=== PATIENT | female | born 1950 | race Hispanic/Latino ===

== ENCOUNTER 2018-01-05 22:10 | Inpatient (IN) | payer MEDICARE ==
[~2018-01-05] VITALS: Ht 149.9 cm; Wt 47.0 kg
[~2018-01-05 22:10] MED LIST: ASPI81TA40 PO; ATOR40TA71 PO; GLIM2TAB3 PO; LISI10TA7 PO; METF750T PO
[2018-01-05 22:40] LABS: BASOPHILS % (AUTO) 0.6 % (0.0-5.0); EOSINOPHILS % (AUTO) 3.8 % (0.0-8.0); HEMATOCRIT 36.3 % (36-48); LYMPHOCYTES % (AUTO) 44.7 % (21.0-51.0); MEAN CORPUSCULAR HEMOGLOBIN 27.7 pg (27.0-33.0); MEAN CORPUSCULAR HGB CONC 33.3 g/dL (32.0-36.0); MEAN CORPUSCULAR VOLUME 83.1 fL (79-99); MONOCYTES % (AUTO) 7.8 % (3.0-13.0); NEUTROPHILS % (AUTO) 43.1 % (40.0-77.0); PLATELET COUNT (AUTO) 306 K/uL (130-400); RED BLOOD CELL COUNT(AUTO) 4.37 MIL/uL (4.00-5.50); RED CELL DISTRIBUTION WIDTH 13.3 % (11.0-15.5); WHITE BLOOD COUNT (AUTO) 6.7 K/uL (4.8-10.8)
[2018-01-05 22:49] LABS: APPEARANCE,URINE Clear (CLEAR); BILIRUBIN,URINE Negative (NEGATIVE); COLOR,URINE Yellow (YELLOW); GLUCOSE, URINE (UA) >=1000 mg/dL (NEGATIVE); KETONES,URINE Negative (NEGATIVE); LEUKOCYTE ESTERASE ,URINE Trace (NEGATIVE); NITRATE,URINE Negative (NEGATIVE); OCCULT BLOOD,URINE Trace (NEGATIVE); PROTEIN,URINE Negative (NEGATIVE); UROBILINOGEN,URINE 0.2 mg/dL (0.2-1.0)
[2018-01-05 22:58] LABS: CREATININE 0.8 mg/dL (0.5-1.5); POTASSIUM 3.9 mmol/L (3.5-5.1)
[2018-01-05 23:00] LABS: AMORPHOUS SEDIMENT,UR Moderate /LPF (None Seen); BACTERIA,URINE Rare /HPF (None Seen); INR 0.95 (0.85-1.15); MUCUS,URINE Few LPF (None Seen); PARTIAL THROMBOPLASTIN TIME 25.4 SEC (26.3-35.5); SQUAMOUS EPITHELIAL CELL,UR Few /HPF (0-2)
[2018-01-05] MEDS ORDERED: SODIUM CHLORIDE 0.9% 1000ML 1,000 ML IV ONE (23:02)
[2018-01-05 23:12] LABS: ALBUMIN 3.4 g/dL (3.5-5.0); BILIRUBIN,TOTAL 0.4 mg/dL (0.2-1.0); CREATINE KINASE MB 0.5 ng/mL (0.5-3.6); TOTAL PROTEIN, SERUM 7.7 g/dL (6.0-8.3)
[2018-01-05] MEDS ORDERED: NITROGLYCERIN 1GM/1 INCH PACKET TD ONE (23:50)
[2018-01-05] MEDS ORDERED: ASPIRIN 325 MG TABLET ONE (23:50)
[2018-01-06] MEDS ORDERED: METOPROLOL TARTRATE 25 MG TAB ONE (01:59)
[2018-01-06] MEDS ORDERED: ENOXAPARIN SODIUM 30 MG/0.3 ML SQ ONE (01:59)
[2018-01-06] MEDS ORDERED: DEXTROSE 5 % AND 0.9 % NACL 1,000 ML IV ONE (02:00)
[2018-01-06 05:43] LABS: BASOPHILS % (AUTO) 0.8 % (0.0-5.0); HEMATOCRIT 31.3 % (36-48); LYMPHOCYTES % (AUTO) 45.1 % (21.0-51.0); MEAN CORPUSCULAR HEMOGLOBIN 28.9 pg (27.0-33.0); MEAN CORPUSCULAR VOLUME 82.5 fL (79-99); MONOCYTES % (AUTO) 6.4 % (3.0-13.0); NEUTROPHILS % (AUTO) 43.7 % (40.0-77.0); NUCLEATED RED BLOOD CELLS 0.1 % (0.0-0.19); PLATELET COUNT (AUTO) 250 K/uL (130-400); RED CELL DISTRIBUTION WIDTH 13.1 % (11.0-15.5); WHITE BLOOD COUNT (AUTO) 6.7 K/uL (4.8-10.8)
[2018-01-06 05:56] LABS: CREATININE 0.6 mg/dL (0.5-1.5); POTASSIUM 3.6 mmol/L (3.5-5.1)
[2018-01-06 06:00] LABS: INR 0.96 (0.85-1.15); PARTIAL THROMBOPLASTIN TIME 30.5 SEC (26.3-35.5); PROTHROMBIN TIME 10.1 SEC (9.6-11.6)
[2018-01-06 06:03] LABS: ALBUMIN 2.8 g/dL (3.5-5.0); BILIRUBIN,TOTAL 0.5 mg/dL (0.2-1.0); MAGNESIUM 1.5 mg/dL (1.80-2.40); TOTAL PROTEIN, SERUM 6.6 g/dL (6.0-8.3)
[2018-01-06] MEDS ORDERED: MAGNESIUM 2GM PREMIX 50ML 50 ML IV ONE ×2 (14:39→16:50)
[2018-01-06 16:00] VITALS: BP 148/78
[2018-01-06] MEDS: PANTOPRAZOLE 40 MG/VIAL IVP SCH (16:00)
[2018-01-06 19:54] VITALS: BP 144/74
[2018-01-07 03:48] VITALS: BP 127/74
[2018-01-07 04:32] LABS: HEMATOCRIT 36.6 % (36-48); MEAN CORPUSCULAR HEMOGLOBIN 27.8 pg (27.0-33.0); MEAN CORPUSCULAR HGB CONC 33.9 g/dL (32.0-36.0); MEAN CORPUSCULAR VOLUME 82.1 fL (79-99); PLATELET COUNT (AUTO) 297 K/uL (130-400); RED BLOOD CELL COUNT(AUTO) 4.46 MIL/uL (4.00-5.50); RED CELL DISTRIBUTION WIDTH 13.2 % (11.0-15.5); WHITE BLOOD COUNT (AUTO) 6.4 K/uL (4.8-10.8)
[2018-01-07 05:10] LABS: ALBUMIN 3.2 g/dL (3.5-5.0); BILIRUBIN,TOTAL 0.7 mg/dL (0.2-1.0); CREATININE 0.7 mg/dL (0.5-1.5); MAGNESIUM 2.3 mg/dL (1.80-2.40); POTASSIUM 3.7 mmol/L (3.5-5.1); TOTAL PROTEIN, SERUM 7.3 g/dL (6.0-8.3)
[2018-01-07] MEDS ORDERED: INSULIN HUMULIN R 100 UNIT/ML 3ML ONE (06:25)
[2018-01-07] MEDS: INSULIN HUMULIN R 100 UNIT/ML 3ML SQ SCH ×2 (06:29→11:30)
[2018-01-07] MEDS ORDERED: GLUCAGON 1MG KIT 1 MG ML IM PRN (06:30)
[2018-01-07] MEDS ORDERED: DEXTROSE 50%-WATER 50 ML DISP.SYRIN IV PRN (06:30)
[2018-01-07 08:00] VITALS: BP 125/77
[2018-01-07] MEDS: PANTOPRAZOLE 40 MG/VIAL IVP SCH (08:11)
[2018-01-07] MEDS ORDERED: LINA1TAB3 PO (08:26)
[2018-01-07] MEDS ORDERED: LEVO500T89 PO (08:26)
[2018-01-07 12:00] VITALS: BP 110/65
[2018-01-07 16:00] VITALS: BP 134/72
[2018-01-07 19:44] VITALS: BP 121/67
[2018-01-08] VITALS: BP 97/52
[2018-01-08 04:00] VITALS: BP 99/51
[2018-01-08] MEDS: INSULIN HUMULIN R 100 UNIT/ML 3ML SQ SCH ×4 (06:11→16:04)
[2018-01-08 07:00] VITALS: BP 100/63
[2018-01-08 11:00] VITALS: BP 104/60
[2018-01-08] MEDS: PANTOPRAZOLE 40 MG/VIAL IVP SCH (15:06)
[2018-01-08 16:00] VITALS: BP 112/67
== END 2018-01-08 17:20 | disposition home or self-care (01) | DRG 439 ==
LOC: EDH 22:10 → EDHIP 01-06 01:40 → 3DH 01-06 16:40
PROVIDERS: ADMIT Internal Medicine Infectious Disease; ATTEND Internal Medicine Infectious Disease
DX: K85.90 Acute pancreatitis without necrosis or infection, unspecified (principal); E44.0 Moderate protein-calorie malnutrition; E11.65 Type 2 diabetes mellitus with hyperglycemia; H40.9 Unspecified glaucoma; M19.90 Unspecified osteoarthritis, unspecified site; I10 Essential (primary) hypertension; I35.1 Nonrheumatic aortic (valve) insufficiency; Z83.3 Family history of diabetes mellitus; Z90.710 Acquired absence of both cervix and uterus
CPT/HCPCS: 36415; 71045; 74176; 80053; 80061; 81001; 82150; 82550; 82553; 82948; 83690; 83735; 84484; 85025; 85027; 85610; 85730; 93005; 93306; C9113; J1650; J1815; J3475; J7030; J7042; J7070

== ENCOUNTER → 2018-07-07 | Outpatient (CLI) | payer MEDICARE ==
[~2018-07-07] MED LIST changes: -GLIM2TAB3 PO; +LINA1TAB3 PO; -METF750T PO
== END | disposition home or self-care (01) ==
LOC: RAH 08:24
PROVIDERS: ATTEND Internal Medicine Gastroenterology
DX: K85.00 Idiopathic acute pancreatitis without necrosis or infection (principal); K80.20 Calculus of gallbladder without cholecystitis without obstruction
CPT/HCPCS: 76700

== ENCOUNTER 2018-10-23 11:01 | Emergency (ER) | payer MEDICARE ==
[2018-10-23 11:47] LABS: BASOPHILS % (AUTO) 0.8 % (0.0-5.0); EOSINOPHILS % (AUTO) 2.9 % (0.0-8.0); HEMATOCRIT 35.3 % (36-48); MEAN CORPUSCULAR HEMOGLOBIN 26.8 pg (27.0-33.0); MEAN CORPUSCULAR HGB CONC 31.8 g/dL (32.0-36.0); MEAN CORPUSCULAR VOLUME 84.3 fL (79-99); MONOCYTES % (AUTO) 5.7 % (3.0-13.0); NEUTROPHILS % (AUTO) 62.6 % (40.0-77.0); PLATELET COUNT (AUTO) 256 K/uL (130-400); RED BLOOD CELL COUNT(AUTO) 4.19 MIL/uL (4.00-5.50); RED CELL DISTRIBUTION WIDTH 14.9 % (11.0-15.5); WHITE BLOOD COUNT (AUTO) 5.8 K/uL (4.8-10.8)
[2018-10-23 11:58] LABS: ALBUMIN 3.3 g/dL (3.5-5.0); BILIRUBIN,TOTAL 0.4 mg/dL (0.2-1.0); CREATININE 0.8 mg/dL (0.5-1.5); POTASSIUM 4.2 mmol/L (3.5-5.1); TOTAL PROTEIN, SERUM 7.6 g/dL (6.0-8.3)
[2018-10-23 12:14] LABS: APPEARANCE,URINE Clear (CLEAR); BILIRUBIN,URINE Negative (NEGATIVE); COLOR,URINE Yellow (YELLOW); GLUCOSE, URINE (UA) >=1000 mg/dL (NEGATIVE); KETONES,URINE Negative (NEGATIVE); LEUKOCYTE ESTERASE ,URINE Negative (NEGATIVE); NITRATE,URINE Negative (NEGATIVE); OCCULT BLOOD,URINE Negative (NEGATIVE); PH,URINE 5.5 (5.0-8.0); PROTEIN,URINE Negative (NEGATIVE); UROBILINOGEN,URINE 0.2 mg/dL (0.2-1.0)
[2018-10-23 12:41] LABS: BACTERIA,URINE Few /HPF (None Seen); RBC,URINE None Seen /HPF (0-1); SQUAMOUS EPITHELIAL CELL,UR Few /HPF (0-2); WBC,URINE 0-1 /HPF (0-1)
[2018-10-23] MEDS ORDERED: ACETAMINOPHEN 325 MG TAB ONE (12:50)
[2018-10-23] MEDS ORDERED: INSULIN HUMULIN R 100 UNIT/ML 3ML ONE (12:56)
[2018-10-23] MEDS ORDERED: SODIUM CHLORIDE 0.9% 1000ML 1,000 ML IV ONE (13:00)
== END 2018-10-23 15:07 | disposition home or self-care (01) ==
LOC: EDH 11:01
DX: A08.4 Viral intestinal infection, unspecified (principal); I10 Essential (primary) hypertension; E11.9 Type 2 diabetes mellitus without complications; M19.90 Unspecified osteoarthritis, unspecified site; Z90.710 Acquired absence of both cervix and uterus; Z98.890 Other specified postprocedural states; Z79.4 Long term (current) use of insulin
CPT/HCPCS: 36415; 80053; 81001; 82150; 82948; 83690; 85025; 93005; 96360; 96361; 96372; 99284; J1815; J7030

== ENCOUNTER 2018-11-02 08:46 | Inpatient (IN) | payer MEDICARE ==
[~2018-11-02] VITALS: Ht 142.2 cm; Wt 52.2 kg
[2018-11-02 09:08] LABS: BASOPHILS % (AUTO) 0.6 % (0.0-5.0); EOSINOPHILS % (AUTO) 2.1 % (0.0-8.0); HEMATOCRIT 35.6 % (36-48); LYMPHOCYTES % (AUTO) 21.5 % (21.0-51.0); MEAN CORPUSCULAR HGB CONC 32.6 g/dL (32.0-36.0); MEAN CORPUSCULAR VOLUME 82.8 fL (79-99); MONOCYTES % (AUTO) 5.8 % (3.0-13.0); NUCLEATED RED BLOOD CELLS 0.1 % (0.0-0.19); PLATELET COUNT (AUTO) 304 K/uL (130-400); RED CELL DISTRIBUTION WIDTH 14.7 % (11.0-15.5)
[2018-11-02] MEDS ORDERED: SODIUM CHLORIDE 0.9% 1000ML 1,000 ML IV ONE ×2 (09:09→10:21)
[2018-11-02 09:18] LABS: CREATININE 0.7 mg/dL (0.5-1.5); POTASSIUM 3.5 mmol/L (3.5-5.1)
[2018-11-02 09:27] LABS: ALBUMIN 3.5 g/dL (3.5-5.0); BILIRUBIN,TOTAL 0.3 mg/dL (0.2-1.0); TOTAL PROTEIN, SERUM 7.1 g/dL (6.0-8.3)
[2018-11-02 10:01] LABS: APPEARANCE,URINE Cloudy (CLEAR); BILIRUBIN,URINE Negative (NEGATIVE); COLOR,URINE Yellow (YELLOW); GLUCOSE, URINE (UA) >=1000 mg/dL (NEGATIVE); KETONES,URINE Negative (NEGATIVE); LEUKOCYTE ESTERASE ,URINE Moderate (NEGATIVE); NITRATE,URINE Negative (NEGATIVE); OCCULT BLOOD,URINE Trace (NEGATIVE); PROTEIN,URINE Negative (NEGATIVE); UROBILINOGEN,URINE 0.2 mg/dL (0.2-1.0)
[2018-11-02 10:23] LABS: BACTERIA,URINE Many /HPF (None Seen); RBC,URINE 0-1 /HPF (0-1)
[2018-11-02] MEDS ORDERED: CEFTRIAXONE SODIUM 1 GM ONE (11:18)
[2018-11-02] MEDS ORDERED: ONDANSETRON HCL 4 MG/2 ML VIAL IVP PRN (12:00)
[2018-11-02] MEDS ORDERED: DEXTROSE 50%-WATER 50 ML DISP.SYRIN IV PRN (12:00)
[2018-11-02] MEDS ORDERED: GLUCAGON 1MG KIT 1 MG ML IM PRN (12:00)
[2018-11-02] MEDS ORDERED: DILTIAZEM HCL 5 MG/ML 10 ML VIAL IV ONE (12:11)
[2018-11-02] MEDS ORDERED: SODIUM CHLORIDE 0.9% 100 ML IV ONE (12:11)
[2018-11-02] MEDS ORDERED: ACETAMINOPHEN 325 MG TAB PO PRN (12:15)
[2018-11-02 17:19] LABS: TROPONIN I 1.95 ng/mL (0.00-0.06)
[2018-11-02] MEDS ORDERED: ASPIRIN 325 MG TABLET ONE (17:27)
--- NOTE | 2018-11-02 18:00 | NUR ---
received from [facility] [email or web address] in no distress, placed tele sr 85, with cardizemdrip at 2.5 mg/hour, saline lock to left hand intact, admission history and admission assessment completed, call light in reach
[2018-11-02 18:14] VITALS: BP 143/75
[2018-11-02] MEDS ORDERED: DILTIAZEM 125MG+100 ML NS 125 ML IV SCH (18:30)
[2018-11-02] MEDS ORDERED: PIOG30TA70 PO (18:51)
[2018-11-02] MEDS ORDERED: INSU100I24 SQ (18:51)
[2018-11-02] MEDS ORDERED: METF-446 PO (18:51)
[2018-11-02] MEDS ORDERED: INSU100V37 SQ (18:51)
[2018-11-02] MEDS ORDERED: METO25TA6 PO (18:51)
[2018-11-02] MEDS ORDERED: AMLO2.5T4 PO (18:51)
[2018-11-02] MEDS ORDERED: DAPA10TA PO (18:51)
[2018-11-02 19:00] VITALS: BP 132/70
[2018-11-02] MEDS: INSULIN R PO SS1 SQ SCH (20:59)
[2018-11-02 23:00] VITALS: BP 108/60
[2018-11-03] VITALS (7 sets, daily range): BP systolic 77–151; BP diastolic 40–76
[2018-11-03 01:04] LABS: TROPONIN I 3.69 ng/mL (0.00-0.06)
--- NOTE | 2018-11-03 01:20 | NUR ---
DR. IRIZARRY RETURNED PAGE, NOTIFIED OF TROPONIN OF 3.69. PATIENT SINUS RHYTHM, DENIES ANY COMPLAINTS OF PAIN OR DISCOMFORT AT PRESENT. DR. IRIZARRY SAID TO CALL IF NEXT SCHEDULED TROPONIN CHECK DOUBLE THE PREVIOUS RESULT, AND IF NOT, THEN DR IRIZARRY WILL SEE WHEN HE ROUNDS. NURSING COMMUNICATION PLACED IN COMPUTER.
--- NOTE | 2018-11-03 03:00 | NUR ---
BP NOTED ON FLOW SHEET, CARDIZEM STOPPED AT THIS TIME. PATIENT CONTINUE SINUS RHYTHM RATE 80'S. BP RECHECKED, NOTE FLOW SHEET. PATIENT CONTINUE SINUS RHYTHM RATE IN 80'S. WILL CONTINUE TO MONITOR.
[2018-11-03 04:05] LABS: MEAN CORPUSCULAR HEMOGLOBIN 27.8 pg (27.0-33.0); MEAN CORPUSCULAR VOLUME 84.1 fL (79-99); PLATELET COUNT (AUTO) 296 K/uL (130-400); RED BLOOD CELL COUNT(AUTO) 3.81 MIL/uL (4.00-5.50); RED CELL DISTRIBUTION WIDTH 15.1 % (11.0-15.5); WHITE BLOOD COUNT (AUTO) 6.3 K/uL (4.8-10.8)
[2018-11-03 04:24] LABS: ALBUMIN 2.8 g/dL (3.5-5.0); BILIRUBIN,TOTAL 0.3 mg/dL (0.2-1.0); CREATININE 0.7 mg/dL (0.5-1.5); POTASSIUM 3.7 mmol/L (3.5-5.1); TOTAL PROTEIN, SERUM 6.3 g/dL (6.0-8.3)
[2018-11-03] MEDS: INSULIN R PO SS1 SQ SCH ×4 (05:39→20:58)
--- NOTE | 2018-11-03 08:30 | NUR ---
DR. IRIZARRY IN TO SEE PATIENT, UPDATE GIVEN. ORDERED MEDS AND LEXISCAN STRESS TEST FOR TOMORROW. PLAN OF CARE EXPLAINED TO PT, VERBALIZED UNDERSTANDING.
[2018-11-03 09:09] LABS: TROPONIN I 4.06 ng/mL (0.00-0.06)
--- NOTE | 2018-11-03 09:30 | NUR ---
PT HAD NOSEBLEED, MINOR BLEEDING NOTED. WILL CONTINUE TO MONITOR.
[2018-11-03] MEDS: METOPROLOL TARTRATE 25 MG TAB PO SCH ×2 (12:59→20:57)
[2018-11-03] MEDS: CEFTRIAXONE SODIUM 1 GM IVP SCH (12:59)
[2018-11-03] MEDS: DILTIAZEM HCL 120 MG CAP.SR.24H PO SCH (12:59)
--- NOTE | 2018-11-03 15:30 | NUR ---
DR. MAYEN IN TO SEE PT, UPDATE GIVEN. RECONCILED HOME MEDS. EVALUATED PT'S LEFT THUMB AND ORDERED TO PAINT WITH BETADINE AND APPLY BANDAID DAILY.----DONE.
--- NOTE | 2018-11-03 16:32 | NUR ---
DC PLAN VISITED WITH PATIENT. PATIENT LIVES WITH DAUGHTER. SEMI - INDEPENDENT ABLE TO PERFORM ADL'S. PATIENT HAS NO DME'S. PROVIDER 5 HRS AT DAY. FEELS SAFE TO RETURN HOME. Addendum: 11/03/18 at 1634 by OBINNA MOSCOSO RN CM Amended: Links added.
[2018-11-03] MEDS: LISINOPRIL 10 MG TABLET PO SCH (20:57)
[2018-11-04 03:29] VITALS: BP 112/60
[2018-11-04] MEDS: INSULIN R PO SS1 SQ SCH ×4 (06:36→21:00)
[2018-11-04 08:09] VITALS: BP 123/66
[2018-11-04] MEDS ORDERED: ENOXAPARIN SODIUM 40 MG/0.4 ML SYRINGE SQ SCH (09:00)
[2018-11-04] MEDS ORDERED: REGADENOSON 0.4 MG/5 ML PF SYG IVP SCH (11:45)
[2018-11-04 11:58] VITALS: BP 142/74
[2018-11-04] MEDS: CEFTRIAXONE SODIUM 1 GM IVP SCH (12:21)
[2018-11-04] MEDS: ASPIRIN 81MG TAB.CHEW PO SCH (15:12)
[2018-11-04] MEDS: DILTIAZEM HCL 120 MG CAP.SR.24H PO SCH (15:12)
[2018-11-04] MEDS: METOPROLOL TARTRATE 25 MG TAB PO SCH ×2 (15:12→21:14)
[2018-11-04] MEDS: ATORVASTATIN CALCIUM 40 MG TABLET PO SCH (15:14)
[2018-11-04 16:00] VITALS: BP 130/76
[2018-11-04 19:36] VITALS: BP 132/68
[2018-11-04] MEDS: LISINOPRIL 10 MG TABLET PO SCH (22:00)
[2018-11-05] VITALS (10 sets, daily range): BP systolic 101–139; BP diastolic 55–75
[2018-11-05 03:57] LABS: EOSINOPHILS % (AUTO) 3.5 % (0.0-8.0); HEMATOCRIT 31.6 % (36-48); LYMPHOCYTES % (AUTO) 47.2 % (21.0-51.0); MEAN CORPUSCULAR HEMOGLOBIN 27.9 pg (27.0-33.0); MEAN CORPUSCULAR HGB CONC 33.2 g/dL (32.0-36.0); MEAN CORPUSCULAR VOLUME 84.1 fL (79-99); MONOCYTES % (AUTO) 8.4 % (3.0-13.0); NEUTROPHILS % (AUTO) 39.9 % (40.0-77.0); PLATELET COUNT (AUTO) 270 K/uL (130-400); RED BLOOD CELL COUNT(AUTO) 3.76 MIL/uL (4.00-5.50); RED CELL DISTRIBUTION WIDTH 14.9 % (11.0-15.5); WHITE BLOOD COUNT (AUTO) 6.4 K/uL (4.8-10.8)
[2018-11-05 04:02] LABS: INR 0.98 (0.85-1.15); PARTIAL THROMBOPLASTIN TIME 28.5 SEC (26.3-35.5); PROTHROMBIN TIME 10.3 SEC (9.6-11.6)
[2018-11-05 04:23] LABS: ALBUMIN 2.9 g/dL (3.5-5.0); BILIRUBIN,TOTAL 0.4 mg/dL (0.2-1.0); CREATININE 0.7 mg/dL (0.5-1.5); MAGNESIUM 1.9 mg/dL (1.80-2.40); TOTAL PROTEIN, SERUM 6.6 g/dL (6.0-8.3)
[2018-11-05] MEDS: INSULIN R PO SS1 SQ SCH ×4 (06:42→20:46)
--- NOTE | 2018-11-05 07:30 | NUR ---
ASSESSMENT ENCOUNTERED PT IN KIRK'S POSITION, A&OX3, CALM COOPERATIVE AND DOES NOT APPEAR TO BE IN ANY DISTRESS NOR ANY NEURO DEFICITS PRESENT. PT DENIES PAIN, SOB, NAUSEA. PT IS AMBULATORY, GAIT STEADY AND STRONG WITH STAND BY ASSIST. PT IS NPO FOR PENDING C BY DR MARK TUTTLE. CALL LIGHT WITHIN REACH.
--- NOTE | 2018-11-05 08:21 | NUR ---
Report given to Ifeanyi Hackett R.N. Patient in stable condition.
[2018-11-05] MEDS: METOPROLOL TARTRATE 25 MG TAB PO SCH ×2 (09:53→20:53)
[2018-11-05] MEDS ORDERED: IOHEXOL-350 50ML VIAL IV ONE (15:09)
[2018-11-05] MEDS ORDERED: NITROGLYCERIN 5 MG/ML 10 ML VIAL IV ONE (15:09)
[2018-11-05] MEDS ORDERED: IOHEXOL 350 MG/ML 100ML INFUS..BTL IV ONE (15:09)
[2018-11-05] MEDS ORDERED: BIVALIRUDIN 250 MG/VIAL IV ONE (15:09)
[2018-11-05] MEDS ORDERED: LIDOCAINE HCL 1% 20 ML VIAL ONE (15:09)
[2018-11-05] MEDS ORDERED: HEPARIN SODIUM 1000UNIT/ML 10ML VIAL ONE (15:09)
[2018-11-05] MEDS ORDERED: MIDAZOLAM HCL 1 MG/ML 2ML VIAL ONE (15:35)
[2018-11-05] MEDS ORDERED: FENTANYL CITRATE PF 50 MCG/1 ML 2ML VIAL ONE (15:35)
[2018-11-05] MEDS ORDERED: HYDRALAZINE HCL 20 MG/ML VIAL ONE (16:26)
--- NOTE | 2018-11-05 17:00 | NUR ---
POST PROCEDURE RECEIVED PT FROM TECHNICIAN PREVENTATIVE MEDICINE IN FLAT POSITION, A&OX3, RT GROIN SOFT NONTENDER WITH NO OOZING OR HEMATOMA PRESENT. DP/PT PULSES PALPABLE. PT ON BEDREST FOR 4 HOURS UNTIL 2100. CALL LIGHT WITHIN REACH, FAMILY AT BEDSIDE.
[2018-11-05] MEDS: DILTIAZEM HCL 120 MG CAP.SR.24H PO SCH (17:51)
[2018-11-05] MEDS: ATORVASTATIN CALCIUM 40 MG TABLET PO SCH (17:51)
[2018-11-05] MEDS: ASPIRIN 81MG TAB.CHEW PO SCH (17:51)
[2018-11-05] MEDS: CEFTRIAXONE SODIUM 1 GM IVP SCH (17:52)
[2018-11-05] MEDS: LISINOPRIL 10 MG TABLET PO SCH (20:53)
[2018-11-06 03:47] VITALS: BP 97/50
[2018-11-06] MEDS: INSULIN R PO SS1 SQ SCH ×4 (06:33→21:00)
--- NOTE | 2018-11-06 07:35 | NUR ---
ASSESSMENT ENCOUNTERED PT A&OX3, CALM COOPERATIVE AND DOES NOT APPEAR TO BE IN ANY DISTRESS NOR ANY NEURO DEFICITS PRESENT. RT GROIN SOFT NONTENDER WITH NO OOZING OR HEMATOMA PRESENT. DP/PT PULSES PALPABLE. PT IS AMBULATORY, GAIT STEADY AND STRONG WITH STAND BY ASSIST. CALL LIGHT WITHIN REACH, FAMILY AT BEDSIDE.
[2018-11-06 07:57] VITALS: BP 106/58
[2018-11-06] MEDS: ASPIRIN 81MG TAB.CHEW PO SCH (09:30)
[2018-11-06] MEDS: ATORVASTATIN CALCIUM 40 MG TABLET PO SCH (09:30)
[2018-11-06] MEDS: METOPROLOL TARTRATE 25 MG TAB PO SCH ×2 (09:31→21:10)
[2018-11-06 12:05] VITALS: BP 97/54
[2018-11-06] MEDS: APIXABAN 5 MG TABLET PO SCH ×2 (14:19→21:10)
[2018-11-06] MEDS: CEFTRIAXONE SODIUM 1 GM IVP SCH (14:19)
[2018-11-06 16:42] VITALS: BP 111/67
[2018-11-06] MEDS: DILTIAZEM HCL 120 MG CAP.SR.24H PO SCH (18:10)
[2018-11-06 19:44] VITALS: BP 133/58
[2018-11-06] MEDS: LISINOPRIL 10 MG TABLET PO SCH (21:10)
[2018-11-06 23:33] VITALS: BP 112/59
[2018-11-07 03:49] VITALS: BP 110/65
[2018-11-07] MEDS: INSULIN R PO SS1 SQ SCH (06:47)
[2018-11-07 07:00] VITALS: BP 111/60
--- NOTE | 2018-11-07 07:40 | NUR ---
ASSESSMENT ENCOUNTERED PT A&OX3, CALM COOPERATIVE AND DOES NOT APPEAR TO BE IN ANY DISTRESS NOR ANY NEURO DEFICITS PRESENT. PT DENIES PAIN, SOB, NAUSEA. RT GROIN SOFT NONTENDER WITH NO OOZING OR HEMATOMA PRESENT. DP/PT PULSES PALPABLE. PT IS AMBULATORY, GAIT STEADY AND STRONG WITH STAND BY ASSIST. CALL LIGHT WITHIN REACH, FAMILY AT BEDSIDE.
[2018-11-07] MEDS: ASPIRIN 81MG TAB.CHEW PO SCH (08:18)
[2018-11-07] MEDS: METOPROLOL TARTRATE 25 MG TAB PO SCH (08:18)
[2018-11-07] MEDS: ATORVASTATIN CALCIUM 40 MG TABLET PO SCH (08:18)
[2018-11-07] MEDS: APIXABAN 5 MG TABLET PO SCH (08:18)
[2018-11-07 11:00] VITALS: BP 117/60
--- NOTE | 2018-11-07 14:00 | NUR ---
DISCHARGE INSTRUCTIONS GIVEN, PIV REMOVED AND INTACT, DISCHARGED HOME TO FAMILY VEHICLE VIA WHEELCHAIR.
== END 2018-11-07 14:34 | disposition home or self-care (01) | DRG 637 ==
LOC: EDH 08:46 → EDHIP 11:15 → 2AH 18:00
PROVIDERS: ADMIT Internal Medicine Infectious Disease; ATTEND Internal Medicine Infectious Disease
PROC: 4A023N7 Measurement of Cardiac Sampling and Pressure, Left Heart, Percutaneous Approach (ICD-10-PCS; principal; 2018-11-05)
PROC: B2111ZZ Fluoroscopy of Multiple Coronary Arteries using Low Osmolar Contrast (ICD-10-PCS; 2018-11-05)
PROC: B2151ZZ Fluoroscopy of Left Heart using Low Osmolar Contrast (ICD-10-PCS; 2018-11-05)
DX: E11.649 Type 2 diabetes mellitus with hypoglycemia without coma (principal); I21.4 Non-ST elevation (NSTEMI) myocardial infarction; N39.0 Urinary tract infection, site not specified; I48.1 Persistent atrial fibrillation; I10 Essential (primary) hypertension; I48.0 Paroxysmal atrial fibrillation; H40.9 Unspecified glaucoma; I25.10 Atherosclerotic heart disease of native coronary artery without angina pectoris; M19.90 Unspecified osteoarthritis, unspecified site; Z79.01 Long term (current) use of anticoagulants; Z90.710 Acquired absence of both cervix and uterus; Z83.3 Family history of diabetes mellitus
CPT/HCPCS: 36415; 78452; 80053; 81001; 82550; 82948; 83605; 83735; 83874; 84436; 84439; 84443; 84484; 85025; 85027; 85610; 85730; 87040; 87077; 87088; 87186; 93005; 93017; 93458; 96374; 99156; 99157; 99291; A4218; A9500; C1894; G0378; J0360; J0583; J0696; J1644; J1650; J1815; J2250; J2785; J3010; J3490; J7030; Q9967

== ENCOUNTER 2018-11-13 12:24 | Emergency (ER) | payer MEDICARE ==
[~2018-11-13 12:24] MED LIST changes: +AMLO2.5T4 PO; -ASPI81TA40 PO; +DAPA10TA PO; +INSU100I24 SQ; +INSU100V37 SQ; -LINA1TAB3 PO; +METF-446 PO; +METO25TA6 PO; +PIOG30TA70 PO
[2018-11-13] MEDS ORDERED: ONDANSETRON HCL 4 MG/2 ML VIAL ONE (13:45)
[2018-11-13] MEDS ORDERED: MORPHINE SULFATE 4 MG/1ML SYG ONE (13:46)
[2018-11-13 13:48] LABS: BASOPHILS % (AUTO) 0.9 % (0.0-5.0); EOSINOPHILS % (AUTO) 1.9 % (0.0-8.0); HEMATOCRIT 38.6 % (36-48); LYMPHOCYTES % (AUTO) 31.9 % (21.0-51.0); MEAN CORPUSCULAR HEMOGLOBIN 27.5 pg (27.0-33.0); MEAN CORPUSCULAR HGB CONC 33.2 g/dL (32.0-36.0); MONOCYTES % (AUTO) 6.8 % (3.0-13.0); NEUTROPHILS % (AUTO) 58.5 % (40.0-77.0); PLATELET COUNT (AUTO) 358 K/uL (130-400); RED BLOOD CELL COUNT(AUTO) 4.65 MIL/uL (4.00-5.50); RED CELL DISTRIBUTION WIDTH 14.5 % (11.0-15.5); WHITE BLOOD COUNT (AUTO) 7.5 K/uL (4.8-10.8)
[2018-11-13 14:04] LABS: CREATININE 0.8 mg/dL (0.5-1.5)
[2018-11-13 14:10] LABS: ALBUMIN 3.8 g/dL (3.5-5.0); BILIRUBIN,TOTAL 0.6 mg/dL (0.2-1.0); TOTAL PROTEIN, SERUM 8.2 g/dL (6.0-8.3)
[2018-11-13 14:26] LABS: INR 0.95 (0.85-1.15)
== END 2018-11-13 15:17 | disposition home or self-care (01) ==
LOC: EDH 12:24
DX: G89.18 Other acute postprocedural pain (principal); R10.31 Right lower quadrant pain; M79.604 Pain in right leg; I10 Essential (primary) hypertension; I25.2 Old myocardial infarction; E11.9 Type 2 diabetes mellitus without complications; M19.90 Unspecified osteoarthritis, unspecified site; Z98.890 Other specified postprocedural states; Z90.710 Acquired absence of both cervix and uterus; Z90.49 Acquired absence of other specified parts of digestive tract
CPT/HCPCS: 36415; 76882; 80053; 85025; 85610; 85730; 93971; 96374; 96375; 99284; J2270; J2405

== ENCOUNTER 2019-02-06 21:13 | Emergency (ER) | payer MEDICARE ==
[2019-02-06] MEDS ORDERED: ASPIRIN 325 MG TABLET ONE (21:49)
[2019-02-06] MEDS ORDERED: NITROGLYCERIN 1GM/1 INCH PACKET TD ONE (21:51)
[2019-02-06 21:59] LABS: APPEARANCE,URINE Clear (CLEAR); BILIRUBIN,URINE Negative (NEGATIVE); COLOR,URINE Yellow (YELLOW); GLUCOSE, URINE (UA) >=1000 mg/dL (NEGATIVE); KETONES,URINE Negative (NEGATIVE); LEUKOCYTE ESTERASE ,URINE Small (NEGATIVE); NITRATE,URINE Negative (NEGATIVE); OCCULT BLOOD,URINE Negative (NEGATIVE); PROTEIN,URINE Negative (NEGATIVE); UROBILINOGEN,URINE 0.2 mg/dL (0.2-1.0)
[2019-02-06 22:07] LABS: BASOPHILS % (AUTO) 1.3 % (0.0-5.0); EOSINOPHILS % (AUTO) 4.6 % (0.0-8.0); HEMATOCRIT 33.6 % (36-48); LYMPHOCYTES % (AUTO) 39.7 % (21.0-51.0); MEAN CORPUSCULAR HEMOGLOBIN 28.3 pg (27.0-33.0); MEAN CORPUSCULAR HGB CONC 33.3 g/dL (32.0-36.0); MEAN CORPUSCULAR VOLUME 84.8 fL (79-99); MONOCYTES % (AUTO) 7.9 % (3.0-13.0); NEUTROPHILS % (AUTO) 46.5 % (40.0-77.0); PLATELET COUNT (AUTO) 270 K/uL (130-400); RED BLOOD CELL COUNT(AUTO) 3.96 MIL/uL (4.00-5.50); RED CELL DISTRIBUTION WIDTH 15.9 % (11.0-15.5); WHITE BLOOD COUNT (AUTO) 5.5 K/uL (4.8-10.8)
[2019-02-06 22:22] LABS: CREATININE 0.9 mg/dL (0.5-1.5); POTASSIUM 4.5 mmol/L (3.5-5.1)
[2019-02-06 22:23] LABS: INR 0.94 (0.85-1.15); PARTIAL THROMBOPLASTIN TIME 28.1 SEC (26.3-35.5); PROTHROMBIN TIME 9.9 SEC (9.6-11.6)
[2019-02-06 22:24] LABS: BACTERIA,URINE Rare /HPF (None Seen); RBC,URINE 0-1 /HPF (0-1); SQUAMOUS EPITHELIAL CELL,UR Few /HPF (0-2); YEAST,URINE BUDDING Few /HPF (None Seen)
[2019-02-06 22:33] LABS: ALBUMIN 3.8 g/dL (3.5-5.0); BILIRUBIN,TOTAL 0.1 mg/dL (0.2-1.0); TOTAL PROTEIN, SERUM 7.9 g/dL (6.0-8.3)
[2019-02-06] MEDS ORDERED: ACETAMINOPHEN 325 MG TAB ONE (23:49)
== END 2019-02-07 01:53 | disposition home or self-care (01) ==
LOC: EDH 21:13
DX: R07.89 Other chest pain (principal); E11.39 Type 2 diabetes mellitus with other diabetic ophthalmic complication; H42 Glaucoma in diseases classified elsewhere; I10 Essential (primary) hypertension; I25.2 Old myocardial infarction; Z90.710 Acquired absence of both cervix and uterus; Z90.49 Acquired absence of other specified parts of digestive tract
CPT/HCPCS: 36415; 71045; 80053; 81001; 82550; 83690; 83874; 83880; 84484; 85025; 85610; 85730; 93005

== ENCOUNTER 2019-02-21 11:38 | Emergency (ER) | payer MEDICARE ==
[2019-02-21 11:57] LABS: BASOPHILS % (AUTO) 0.7 % (0.0-5.0); EOSINOPHILS % (AUTO) 2.7 % (0.0-8.0); HEMATOCRIT 30.2 % (36-48); LYMPHOCYTES % (AUTO) 26.6 % (21.0-51.0); MEAN CORPUSCULAR HEMOGLOBIN 29.2 pg (27.0-33.0); MEAN CORPUSCULAR HGB CONC 34.1 g/dL (32.0-36.0); MEAN CORPUSCULAR VOLUME 85.5 fL (79-99); MONOCYTES % (AUTO) 7.5 % (3.0-13.0); NEUTROPHILS % (AUTO) 62.5 % (40.0-77.0); PLATELET COUNT (AUTO) 263 K/uL (130-400); RED BLOOD CELL COUNT(AUTO) 3.53 MIL/uL (4.00-5.50); RED CELL DISTRIBUTION WIDTH 15.8 % (11.0-15.5); WHITE BLOOD COUNT (AUTO) 6.4 K/uL (4.8-10.8)
[2019-02-21] MEDS ORDERED: ASPIRIN 325 MG TABLET ONE (11:59)
[2019-02-21 12:11] LABS: CREATININE 0.7 mg/dL (0.5-1.5)
[2019-02-21 12:14] LABS: INR 0.96 (0.85-1.15); PROTHROMBIN TIME 10.1 SEC (9.6-11.6)
[2019-02-21 12:16] LABS: ALBUMIN 3.3 g/dL (3.5-5.0); BILIRUBIN,TOTAL 0.2 mg/dL (0.2-1.0); TOTAL PROTEIN, SERUM 6.8 g/dL (6.0-8.3)
[2019-02-21 12:29] LABS: PARTIAL THROMBOPLASTIN TIME 30.3 SEC (26.3-35.5)
[2019-02-21 12:38] LABS: B-TYPE NATRIURETIC PEPTIDE 138 pg/mL (0-100)
== END 2019-02-21 15:58 | disposition home or self-care (01) ==
LOC: EDH 11:38
DX: I48.91 Unspecified atrial fibrillation (principal); R42 Dizziness and giddiness; R53.1 Weakness; E11.9 Type 2 diabetes mellitus without complications; I25.2 Old myocardial infarction; I10 Essential (primary) hypertension; Z90.49 Acquired absence of other specified parts of digestive tract; Z90.710 Acquired absence of both cervix and uterus
CPT/HCPCS: 36415; 71045; 80053; 82550; 83880; 84484; 85025; 85610; 85730; 93005

== ENCOUNTER 2019-04-24 18:04 | Emergency (ER) | payer MEDICARE ==
[2019-04-24 18:28] LABS: BASOPHILS % (AUTO) 0.9 % (0.0-5.0); EOSINOPHILS % (AUTO) 1.7 % (0.0-8.0); HEMATOCRIT 33.6 % (36-48); LYMPHOCYTES % (AUTO) 19.3 % (21.0-51.0); MEAN CORPUSCULAR HEMOGLOBIN 27.5 pg (27.0-33.0); MEAN CORPUSCULAR HGB CONC 32.7 g/dL (32.0-36.0); MEAN CORPUSCULAR VOLUME 84.3 fL (79-99); NEUTROPHILS % (AUTO) 68.1 % (40.0-77.0); PLATELET COUNT (AUTO) 318 K/uL (130-400); RED BLOOD CELL COUNT(AUTO) 3.98 MIL/uL (4.00-5.50); RED CELL DISTRIBUTION WIDTH 14.7 % (11.0-15.5); WHITE BLOOD COUNT (AUTO) 7.1 K/uL (4.8-10.8)
[2019-04-24] MEDS ORDERED: NITROGLYCERIN 1GM/1 INCH PACKET TD ONE (18:30)
[2019-04-24 18:47] LABS: INR 0.94 (0.85-1.15); PARTIAL THROMBOPLASTIN TIME 30.3 SEC (26.3-35.5); PROTHROMBIN TIME 9.9 SEC (9.6-11.6)
[2019-04-24 18:52] LABS: CREATININE 0.9 mg/dL (0.5-1.5); POTASSIUM 4.8 mmol/L (3.5-5.1)
[2019-04-24 18:56] LABS: ALBUMIN 3.3 g/dL (3.5-5.0); BILIRUBIN,TOTAL 0.3 mg/dL (0.2-1.0); TOTAL PROTEIN, SERUM 7.5 g/dL (6.0-8.3)
== END 2019-04-24 23:24 | disposition home or self-care (01) ==
LOC: EDH 18:04
DX: R07.89 Other chest pain (principal); R05 Cough; E11.9 Type 2 diabetes mellitus without complications; I10 Essential (primary) hypertension; K21.9 Gastro-esophageal reflux disease without esophagitis; M19.90 Unspecified osteoarthritis, unspecified site; E78.00 Pure hypercholesterolemia, unspecified; I25.2 Old myocardial infarction; Z90.710 Acquired absence of both cervix and uterus; Z98.890 Other specified postprocedural states; Z79.899 Other long term (current) drug therapy
CPT/HCPCS: 36415; 71045; 80053; 82550; 84484; 85025; 85610; 85730; 93005

== ENCOUNTER 2019-11-25 17:41 | Emergency (ER) | payer MEDICARE ==
[2019-11-25] MEDS ORDERED: ACETAMINOPHEN EXTRA STRENGTH 500 MG TABLET ONE (18:34)
[2019-11-25 19:12] LABS: POTASSIUM 4.5 mmol/L (3.5-5.1)
[2019-11-25 19:17] LABS: ALBUMIN 3.6 g/dL (3.5-5.0); BILIRUBIN,TOTAL 0.5 mg/dL (0.2-1.0); TOTAL PROTEIN, SERUM 8.1 g/dL (6.0-8.3)
[2019-11-25 19:19] LABS: BASOPHILS % (AUTO) 0.7 % (0.0-5.0); EOSINOPHILS % (AUTO) 2.7 % (0.0-8.0); HEMATOCRIT 35.1 % (36-48); LYMPHOCYTES % (AUTO) 23.4 % (21.0-51.0); MEAN CORPUSCULAR HEMOGLOBIN 25.8 pg (27.0-33.0); MEAN CORPUSCULAR HGB CONC 31.1 g/dL (32.0-36.0); MONOCYTES % (AUTO) 8.2 % (3.0-13.0); NEUTROPHILS % (AUTO) 64.4 % (40.0-77.0); PLATELET COUNT (AUTO) 309 K/uL (130-400); RED BLOOD CELL COUNT(AUTO) 4.23 MIL/uL (4.00-5.50); RED CELL DISTRIBUTION WIDTH 15.3 % (11.0-15.5); WHITE BLOOD COUNT (AUTO) 7.1 K/uL (4.8-10.8)
[2019-11-25 19:43] LABS: INR 1.08 (0.85-1.15); PARTIAL THROMBOPLASTIN TIME 31.5 SEC (26.3-35.5); PROTHROMBIN TIME 11.3 SEC (9.6-11.6)
== END 2019-11-25 20:21 | disposition home or self-care (01) ==
LOC: EDH 17:41
DX: M79.605 Pain in left leg (principal); I25.2 Old myocardial infarction; M19.90 Unspecified osteoarthritis, unspecified site; E78.00 Pure hypercholesterolemia, unspecified; E11.9 Type 2 diabetes mellitus without complications; K21.9 Gastro-esophageal reflux disease without esophagitis; Z90.710 Acquired absence of both cervix and uterus; Z98.890 Other specified postprocedural states
CPT/HCPCS: 36415; 80053; 82550; 84484; 85025; 85610; 85730; 93005; 93971